=== PATIENT | female | born 1965 | race Caucasian/White ===

== ENCOUNTER 2017-01-01 10:02 | Emergency (ER) | payer OTHER ==
[~2017-01-01] VITALS: Ht 160 cm; Wt 100.7 kg
[~2017-01-01 10:02] MED LIST: ADVIL MIGRAINE200 MG PO; ANXIETY MED; DEPRESSION MED; [UNRECOGNIZED DRUG - OTHER]
[2017-01-01] MEDS ORDERED: MEDROL DOSEPAK4 MG PO (11:38)
[2017-01-01] MEDS ORDERED: ATARAX,VISTARIL25 MG PO (11:39)
[2017-01-01 11:55] VITALS: BP 113/64
== END 2017-01-01 11:56 | disposition home or self-care (01) ==
LOC: EME 10:02
DX: T78.40XA Allergy, unspecified, initial encounter (principal)
CPT/HCPCS: 99281; 99282

== ENCOUNTER 2017-01-15 18:10 | Emergency (ER) | payer OTHER ==
[~2017-01-15] VITALS: Ht 160 cm; Wt 102.5 kg
[~2017-01-15 18:10] MED LIST changes: +ATARAX,VISTARIL25 MG PO; +MEDROL DOSEPAK4 MG PO
[2017-01-15] MEDS ORDERED: PREDNISONE20 MG PO (19:34)
[2017-01-15] MEDS ORDERED: KENALOG,ARISTOC80 G1 TP (19:34)
[2017-01-15] MEDS ORDERED: ATARAX,VISTARIL25 MG PO (19:34)
[2017-01-15 20:11] VITALS: BP 147/90
== END 2017-01-15 20:12 | disposition home or self-care (01) ==
LOC: EME 18:10
DX: S40.861A Insect bite (nonvenomous) of right upper arm, initial encounter (principal); S10.96XA Insect bite of unspecified part of neck, initial encounter; S20.369A Insect bite (nonvenomous) of unspecified front wall of thorax, initial encounter; S20.469A Insect bite (nonvenomous) of unspecified back wall of thorax, initial encounter; W57.XXXA Bitten or stung by nonvenomous insect and other nonvenomous arthropods, initial encounter; F32.9 Major depressive disorder, single episode, unspecified; F41.9 Anxiety disorder, unspecified
CPT/HCPCS: 99281; 99284; J7512